=== PATIENT | female | born 1980 | race Caucasian/White ===

== ENCOUNTER 2017-09-03 22:55 | Inpatient (IN) ==
[2017-09-03] MEDS ORDERED: Acetaminophen 325 MG TABLET PO ONE ×2 (23:08→23:12)
[2017-09-03 23:31] LABS: Basophils % 0.1 %; Eosinophils % 0.1 %; Hematocrit 34.7 % (35.3-44.9); Hemoglobin 11.8 g/dL (11.5-15.4); Immature Granulocytes % 0.9 % (0-4); Lymphocytes # 1.5 K/mcL (0.6-4.6); Lymphocytes % 8.7 %; Mean Corpuscular Hemoglobin 31.1 pg (28.0-33.3); Mean Corpuscular Volume 91.3 fL (83.0-100.0); Mean Platelet Volume 10.2 fL (9.4-12.4); Monocytes # 1.3 K/mcL (0.0-1.3); Monocytes % 7.4 %; Neutrophils # 14.6 K/mcL (1.6-8.9); Platelet Count 239 K/mcL (140-400); Red Cell Distribution Width 13.9 % (11.5-14.5); Segmented Neutrophils % 82.8 %
[2017-09-03 23:36] LABS: INR 1.1; Prothrombin Time 12.3 Seconds (9.4-12.1)
[2017-09-03 23:38] LABS: Activated Partial Thrombo Time 29.3 Seconds (26.0-36.0)
--- NOTE | 2017-09-03 23:42 | Emergency Department Note ---
Disposition Clinical Impression: Pyelonephritis Disposition: Admitted As Inpatient Condition: Undetermined HPI - General Chief complaint: ED Abdominal Pain Stated complaint: Right Flank Pain Time Seen by Provider: 09/03/17 23:08 Source: patient, EMS Limitations: no limitations - History of Present Illness HPI Narrative: Concern about status. 37-year-old patient with a past medical history of IV drug use, presents from [facility] for pyelonephritis. Patient was sent here for treatment due to and unknown gestational age. She states her last monthly period was in May which puts her at roughly 15 weeks . 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 She denies shortness of breath, chest pain, vaginal discharge, vaginal cramping, abdominal cramping. Patient has received no care up until this point, she has an appointment with an OB next week for her first appointment. Patient is a 8 para 5 with 2 abortions. Pt Subjective Complaint: other (Pyelonephritis) Consistency: constant, Worsening Location: flank Radiation: abdomen Pain Severity: moderate, severe Quality: sharp Improves with: none - Related Data Home Medications Medication Instructions Recorded Confirmed Quetiapine Fumarate [Seroquel] 400 mg PO HS 11/27/16 09/04/17 Propranolol [Inderal] 20 mg PO TID 09/04/17 09/04/17 Topiramate [Topiramate] 25 mg PO DAILY 09/04/17 09/04/17 hydrOXYzine HCl [Hydroxyzine HCl] 50 mg PO TID 09/04/17 09/04/17 Allergies Allergy/AdvReac Type Severity Reaction Status Date / Time No Known Allergies Allergy Verified 11/27/16 05:32 All systems ED: reviewed and negative except as stated. Review of Systems: As Per HPI Constitutional: Reports: fever, chills Cardiovascular: Denies: chest pain, edema, syncope Respiratory: Denies: cough, dyspnea, sputum production Gastrointestinal: Denies: abdominal pain, nausea, vomiting, diarrhea Genitourinary: Reports: urgency, dysuria, frequency Musculoskeletal: Reports: back pain Neurological: Denies: headache, weakness, numbness, paresthesias PMH - Past Medical History LMP comments: - Social History Smoking Status: Current every day smoker Alcohol use: Reports: occasionally Drug use: Reports: opiates, methamphetamine, IV Drug Use, prescription drug abuse Physical Exam - General Limitations: no limitations General appearance: alert, in no apparent distress - Head Head exam: atraumatic, normocephalic, normal inspection - Eye Eye exam: Present: normal appearance, PERRL, EOMI - Neck Neck exam: Present: normal inspection, full ROM, trachea midline - Chest Chest inspection: Present: normal inspection, symmetric chest wall rise - Respiratory Respiratory exam: Present: normal lung sounds bilaterally - Cardiovascular Cardiovascular exam: Present: normal rhythm, tachycardia, normal heart sounds - Abdominal Exam Abdominal exam: Present: soft, Non-Tender, normal bowel sounds. Absent: tenderness, distention, guarding, rebound, rigidity - Extremities Exam Extremities exam: Present: normal inspection, full ROM. Absent: tenderness, pedal edema - Back Exam Back exam: Present: CVA tenderness (R) - Neurological Exam Neurological exam: Present: alert, oriented X3, CN II-XII intact - Psychiatric Psychiatric exam: Present: normal affect, normal mood - Skin Skin exam: Present: warm, dry, intact, normal color Course Course Narrative: 37-year-old patient with a past medical history of IV drug use, presents from [facility] for pyelonephritis. Patient was sent here for treatment due to and unknown gestational age. She states her last monthly period was in May which puts her at roughly 15 weeks . 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 She denies shortness of breath, chest pain, vaginal discharge, vaginal cramping, abdominal cramping. Patient has received no care up until this point, she has an appointment with an OB next week for her first appointment. Patient is a 8 para 5 with 2 abortions. 37-year-old toxic appearing female that looks older than stated age. She does have exquisite right CVA tenderness, with radiation. She does appear in moderate distress. Labs [facility] include White blood cell 17.6 , urinalysis shows leukocyte Estrace, sodium 1:30. We will labs, with the on- call SHOE RECONDITIONER for recommendations, complaints admitted to hospitalist services - Reevaluation(s) Reevaluation #1: Spoke with LINDSEY Garcia regarding care of patient. Because states he gave her Rocephin 1 g daily, IV fluids, may use Phenergan for nausea and vomiting, she needs a new UA, she had a transvaginal ultrasound in the morning to establish gestational age, and she will need a retroperitoneal ultrasound with a kidney infection due to unable to get a CT scan for . She will S admit to hospitalist services on the medicine floor due to being less than 20 weeks . They will consult alongside. Time: 00:31 (Source of) Reevaluation #2: Spoke with Dr. Blas with Hospital services. He does accept patient to the medical floor. Time: 01:20 Vital Signs Temperature 99.9 F H 09/03/17 22:57 Pulse Rate 113 09/03/17 22:57 Respiratory Rate 18 09/03/17 22:57 Blood Pressure 105/62 09/03/17 22:57 O2 Sat by Pulse Oximetry 98 09/03/17 22:57 Temperature 99.1 F 09/04/17 06:52 Pulse Rate 112 09/04/17 06:52 Respiratory Rate 14 09/04/17 06:52 Blood Pressure 107/68 09/04/17 06:52 O2 Sat by Pulse Oximetry 95 09/04/17 06:52 Oxygen Delivery Oxygen Delivery Room Air OB/Uterine Contractions - Lab Data Result diagrams: 09/03/17 23:21 09/03/17 23:21 Lab Results 09/03/17 09/03/17 09/03/17 Range/Units 23:21 23:21 23:21 WBC 17.6 H (4.3-11.1) K/mcL RBC 3.80 L (3.82-4.97) M/mcL Hgb 11.8 (11.5-15.4) g/dL Hct 34.7 L (35.3-44.9) % MCV 91.3 (83.0-100.0) fL MCH 31.1 (28.0-33.3) pg MCHC 34.0 (31.6-35.5) g/dL RDW 13.9 (11.5-14.5) % Plt Count 239 (140-400) K/mcL MPV 10.2 (9.4-12.4) fL Immature Gran % 0.9 (0-4) % Seg Neutrophils % 82.8 % Lymphocytes % 8.7 % Monocytes % 7.4 % Eosinophils % 0.1 % Basophils % 0.1 % Neutrophils # 14.6 H (1.6-8.9) K/mcL Lymphocytes # 1.5 (0.6-4.6) K/mcL Monocytes # 1.3 (0.0-1.3) K/mcL Eosinophils # 0.0 (0.0-0.6) K/mcL Basophils # 0.0 (0.0-0.2) K/mcL PT 12.3 H (9.4-12.1) Seconds INR 1.1 APTT 29.3 (26.0-36.0) Seconds Sodium 130 L (136-145) mEq/L Potassium 4.1 (3.5-5.1) mEq/L Chloride 103 (98-107) mEq/L Carbon Dioxide 21 L (23-29) mEq/L BUN 7 (6-20) mg/dL Creatinine 0.59 L (0.60-1.20) mg/dL Est GFR ( Amer) > 60 (> 60) Est GFR (Non-Af Amer) > 60 (> 60) BUN/Creatinine Ratio 12 (6-26) Glucose 118 H (70-105) mg/dL Calculated Osmolality 269 L (280-300) Lactic Acid (0.5-2.2) mmol/L Calcium 8.6 (8.6-10.3) mg/dL Total Bilirubin 0.5 (0.3-1.0) mg/dL Direct Bilirubin 0.2 (0.0-0.2) mg/dL Indirect Bilirubin 0.3 (0.0-1.2) mg/dL AST 33 (13-39) Units/L ALT 56 H (7-52) Units/L Alkaline Phosphatase 78 (34-104) Units/L Serum Total Protein 6.3 L (6.4-8.9) g/dL Albumin 2.9 L (3.5-5.7) g/dL Globulin 3.4 (2.4-3.5) g/dL Albumin/Globulin Ratio 0.9 L (1.1-2.2) Lipase 12 (11-82) Units/L Beta HCG, Quant 38495 H (Less than 5) mIU/mL 09/03/17 Range/Units 23:21 WBC (4.3-11.1) K/mcL RBC (3.82-4.97) M/mcL Hgb (11.5-15.4) g/dL Hct (35.3-44.9) % MCV (83.0-100.0) fL MCH (28.0-33.3) pg MCHC (31.6-35.5) g/dL RDW (11.5-14.5) % Plt Count (140-400) K/mcL MPV (9.4-12.4) fL Immature Gran % (0-4) % Seg Neutrophils % % Lymphocytes % % Monocytes % % Eosinophils % % Basophils % % Neutrophils # (1.6-8.9) K/mcL Lymphocytes # (0.6-4.6) K/mcL Monocytes # (0.0-1.3) K/mcL Eosinophils # (0.0-0.6) K/mcL Basophils # (0.0-0.2) K/mcL PT (9.4-12.1) Seconds INR APTT (26.0-36.0) Seconds Sodium (136-145) mEq/L Potassium (3.5-5.1) mEq/L Chloride (98-107) mEq/L Carbon Dioxide (23-29) mEq/L BUN (6-20) mg/dL Creatinine (0.60-1.20) mg/dL Est GFR ( Amer) (> 60) Est GFR (Non-Af Amer) (> 60) BUN/Creatinine Ratio (6-26) Glucose (70-105) mg/dL Calculated Osmolality (280-300) Lactic Acid 1.6 (0.5-2.2) mmol/L Calcium (8.6-10.3) mg/dL Total Bilirubin (0.3-1.0) mg/dL Direct Bilirubin (0.0-0.2) mg/dL Indirect Bilirubin (0.0-1.2) mg/dL AST (13-39) Units/L ALT (7-52) Units/L Alkaline Phosphatase (34-104) Units/L Serum Total Protein (6.4-8.9) g/dL Albumin (3.5-5.7) g/dL Globulin (2.4-3.5) g/dL Albumin/Globulin Ratio (1.1-2.2) Lipase (11-82) Units/L Beta HCG, Quant (Less than 5) mIU/mL
[2017-09-03 23:53] LABS: Alanine Aminotransferase 56 Units/L (7-52); Albumin 2.9 g/dL (3.5-5.7); Albumin/Globulin Ratio 0.9 (1.1-2.2); Alkaline Phosphatase 78 Units/L (34-104); Aspartate Amino Transferase 33 Units/L (13-39); BUN/Creatinine Ratio 12 (6-26); Bilirubin,Direct 0.2 mg/dL (0.0-0.2); Bilirubin,Indirect 0.3 mg/dL (0.0-1.2); Bilirubin,Total 0.5 mg/dL (0.3-1.0); Blood Urea Nitrogen 7 mg/dL (6-20); Calcium 8.6 mg/dL (8.6-10.3); Carbon Dioxide 21 mEq/L (23-29); Chloride 103 mEq/L (98-107); Globulin 3.4 g/dL (2.4-3.5); Glucose 118 mg/dL (70-105); Lipase 12 Units/L (11-82); Osmolality,Calculated 269 (280-300); Potassium 4.1 mEq/L (3.5-5.1); Sodium 130 mEq/L (136-145); Total Protein 6.3 g/dL (6.4-8.9); eGFR For African Americans > 60 (> 60); eGFR For Non-African Americans > 60 (> 60)
[2017-09-04] MEDS ORDERED: cefTRIAXone 2,000 MG in Water for inj. (sterile) 20 ML 20 ML IVPB SCH (01:00)
--- NOTE | 2017-09-04 01:22 | Emergency Department Note ---
START Narrative - START START: I examined this patient and my medical decision-making was reviewed with the nurse practioner. I agree with the documented findings, disposition and treatment plan as described except to the extent set forth below. 37 year old female presents to the ED from [place] for pyelonephritis and with confirmed IUP. She has spoken with OBBGYN and we will start rocephin therapy and admit to medicine.
[2017-09-04] MEDS ORDERED: Naloxone 0.4 MG/ML INJ IVP PRN (05:51)
[2017-09-04] MEDS ORDERED: 0.9 % Sodium Chloride 1,000 ML IVC SCH (06:00)
[2017-09-04] MEDS ORDERED: cefTRIAXone 2,000 MG in Water for inj. (sterile) 20 ML 20 ML IVP SCH (06:00)
--- NOTE | 2017-09-04 06:22 | Internal Med History&Physical ---
Date of Encounter: 09/04/17 Time of Encounter: 05:00 Assessment and Plan (1) DVT prophylaxis Current visit: Yes Status: Acute Lovenox SC (2) Pyelonephritis Current visit: No Status: Acute Pt has fever, Leukocytosis, nausea, right flank pain, UA shows UTI. Consider pyelonephritis. - Pt has received rocephin 1 g in [place] [facility], will cont with rocephin 1 g iv daily. - US retroperitoneal to r/o obstruction/hydronephrosis - F/U urine culture (3) Second trimester Current visit: No Status: Acute Per [place] [facility] record, heart tone is OK at 150. Will consult GRAPHIC COORDINATOR for help with management. Internal Medicine - H&P: HPI Chief complaint: Right flank pain Admitted From: Home Plans for Post Hospital Care: Home History of present illness: Ms. Woodall is a 37 year old female with 15 wk present to [place] [facility] for right flank pain for two days. Pt c/o fever with Temperature 100.1. She has nausea but no vomiting. Pt denies hx of renal stone. Pt denies runny nose or cough. Pt denies dysuria, burning, or increased frequency but c/o urinating urgency. In ER, UA shows UTI. Pt was admitted for pyelonephritis. Past Med Surg Social Fam HX - Past Medical History Medical history: hepatitis, other Psychiatric history: no psych history - Past Surgical History Surgical History: no surgical history - Social History Smoking Status: Current every day smoker Packs per day: 1/2 Smokeless Tobacco Status: No Alcohol use: none, occasionally Drug use: opiates, methamphetamine, IV Drug Use, prescription drug abuse - Family History Mother Living Status: Still Living Father Living Status: Still Living Hx Family Endocrine Disorder: Yes (DM) Internal Medicine - H&P: Meds Gabapentin [Neurontin] 600 mg PO QID 11/27/16 [History] Quetiapine Fumarate [Seroquel] 400 mg PO HS 11/27/16 [History] Tizanidine HCl [Zanaflex] 4 mg PO TID 11/27/16 [History] 3 Allergy/AdvReac Type Severity Reaction Status Date / Time No Known Allergies Allergy Verified 11/27/16 05:32 All Systems PM: A 10-system review of systems was performed and is negative for pertinent findings except as documented above in the HPI. - Constitutional Vitals: Temp Pulse Resp BP Pulse Ox 98.6 F 92 15 99/61 99 09/04/17 02:53 09/04/17 02:53 09/04/17 02:53 09/04/17 02:53 09/04/17 02:53 General appearance: Present: A&O X 3, no acute distress, answers questions appropriately - Head Head exam: Present: atraumatic, normocephalic - Eye Eye exam: Present: PERRL, conjuntiva pink, sclera anicteric Pupils: Present: PERRL - Neck Neck exam general surgery: Present: supple, trachea midline. Absent: lymphadenopathy - Respiratory Respiratory exam: Present: CTAB. Absent: accessory muscle use, rales, rhonchi, wheezes - Cardiovascular Cardiovascular exam: Present: RRR, +S1, +S2. Absent: diastolic murmur, gallop, rubs, systolic murmur - GI/Abdominal GI/Abdominal exam: Present: normal bowel sounds, soft, no peritoneal signs. Absent: distended, tenderness Additional comments: CVAT positive on right side - Extremities Exam Extremities exam: Present: warm, radial pulses palpable and symmetrical. Absent : calf tenderness, cyanotic, pedal edema - Neurological Exam Neurological exam: Present: CN II-XII intact, oriented X3, no focal deficits. Absent: pronater drift, facial droop, speech deficit - Skin Skin exam: Present: dry, intact Internal Med - H&P Results - Labs CBC & Chem 7: 09/03/17 23:21 09/03/17 23:21
[2017-09-04] MEDS: Acetaminophen 325 MG TABLET PO PRN ×2 (06:49→19:53)
[2017-09-04] MEDS: *HR* Enoxaparin 40 MG/0.4 ML SYRINGE SQ SCH (06:50)
--- NOTE | 2017-09-04 08:44 | OB/GYN Consult Note ---
Date of Encounter: 09/04/17 Time of Encounter: 08:30 Assessment and Plan (1) Second trimester Current Visit: No Status: Acute Patient doing well. No signs of active labor. Confirm gestational age with U/S Follow-up outpatient for care. No further acute intervention from OBGYN required at this time. Thank you for the consult. (2) Advanced maternal age (AMA) in Current Visit: Yes Status: Acute high risk (3) 19 weeks gestation of Current Visit: Yes Status: Acute ultrasound dates at 19w2d FHR 138 bpm Patient reports +FM Patient has not started care (4) Opiate dependence Current Visit: Yes Status: Acute Patient would like to join [facility] after speaking with pediatric social worker Patient is scheduled to see LINDSEY Latham in [place] tomorrow Patient educated that subutex group is for [facility] patient's only, patient is interested in seeing Dr. Tinajero if he will take her as a patient. + Qualifiers: Substance use status: uncomplicated Qualified Code(s): F11.20 - Opioid dependence, uncomplicated History of Present Illness Consult date: 09/04/17 Reason for consult: other Chief complaint: back pain History of present illness: 37F 5 0 2 5 with PMHx IV Drug use presented to [facility] for pyelonephritis and was sent to [facility] for treatment due to and unknown gestation age. LMP 05/30/17, which puts her at 15 weeks. Patient states previous pregnancies were all without complications. Denies previous C/S. She reports last percocet and gabapentin use 3 weeks ago. Admits to active movements, denies vaginal bleeding, contractions, leakage of fluids. No care during this with scheduled OBGYN appointment tomorrow. Past Med Surg Social Fam HX - Past Medical History Source: patient Medical history: hepatitis, other Psychiatric history: no psych history - Past Surgical History Surgical History: no surgical history - Social History Smoking Status: Current every day smoker Packs per day: 1/2 Smokeless Tobacco Status: No Alcohol use: occasionally Drug use: opiates, methamphetamine, IV Drug Use, prescription drug abuse - Family History Mother Living Status: Still Living Father Living Status: Still Living Hx Family Endocrine Disorder: Yes (DM) Medications and Allergies Quetiapine Fumarate [Seroquel] 400 mg PO HS 11/27/16 [History] Propranolol [Inderal] 20 mg PO TID 09/04/17 [History] Topiramate [Topiramate] 25 mg PO DAILY 09/04/17 [History] hydrOXYzine HCl [Hydroxyzine HCl] 50 mg PO TID 09/04/17 [History] 3 Allergy/AdvReac Type Severity Reaction Status Date / Time No Known Allergies Allergy Verified 11/27/16 05:32 Review of Systems Constitutional: as per HPI Exam - Vital Signs Vital signs: Initial Vital Signs Temp Pulse Resp BP Pulse Ox 99.9 F H 113 18 105/62 98 09/03/17 22:57 09/03/17 22:57 09/03/17 22:57 09/03/17 22:57 09/03/17 22:57 - Constitutional Constitutional: well developed, well nourished, no acute distress, average body habitus - HEENT HEENT: Normocephaly, Mucus Membranes Moist - Neck Neck exam: normal inspection, supple, trachea midline - Lungs Respiratory exam: CTAB - Cardiovascular Cardiovascular exam: RRR, +S1, +S2 - Abdomen Abdomen: Present: bowel sounds normal, gravid, non tender - Extremities Extremities exam: full ROM Deep Tendon Reflex Grade: 2+ Normal - Uterus Uterus exam: Present: normal size (Fundus firm and nontender) Results Result Diagrams: 09/04/17 08:43 09/04/17 08:43 Abnormal lab results WBC 17.6 K/mcL (4.3-11.1) H 09/03/17 23:21 RBC 3.80 M/mcL (3.82-4.97) L 09/03/17 23:21 Hct 34.7 % (35.3-44.9) L 09/03/17 23:21 Neutrophils # 14.6 K/mcL (1.6-8.9) H 09/03/17 23:21 PT 12.3 Seconds (9.4-12.1) H 09/03/17 23:21 Sodium 130 mEq/L (136-145) L 09/03/17 23:21 Carbon Dioxide 21 mEq/L (23-29) L 09/03/17 23:21 Creatinine 0.59 mg/dL (0.60-1.20) L 09/03/17 23:21 Glucose 118 mg/dL (70-105) H 09/03/17 23:21 Calculated Osmolality 269 (280-300) L 09/03/17 23:21 ALT 56 Units/L (7-52) H 09/03/17 23:21 Serum Total Protein 6.3 g/dL (6.4-8.9) L 09/03/17 23:21 Albumin 2.9 g/dL (3.5-5.7) L 09/03/17 23:21 Albumin/Globulin Ratio 0.9 (1.1-2.2) L 09/03/17 23:21 Beta HCG, Quant 78839 mIU/mL (Less than 5) H 09/03/17 23:21 All other labs normal. Consult Discharge Plan - Plan Referrals: Keo Schaefer MD [Primary Care Provider] - - Attending Attestation I examined this patient and my medical decision-making was reviewed with the Resident Physician. I agree with the documented findings, disposition and treatment plan as described except to the extent set forth below. LINDSEY Valles
[2017-09-04 08:51] LABS: Hematocrit 34.5 % (35.3-44.9); Hemoglobin 11.5 g/dL (11.5-15.4); Immature Granulocytes % 1.2 % (0-4); Lymphocytes % 4.3 %; Mean Corpuscular HGB Conc 33.3 g/dL (31.6-35.5); Mean Corpuscular Hemoglobin 30.6 pg (28.0-33.3); Mean Corpuscular Volume 91.8 fL (83.0-100.0); Mean Platelet Volume 10.3 fL (9.4-12.4); Monocytes % 8.3 %; Platelet Count 217 K/mcL (140-400); Red Blood Count 3.76 M/mcL (3.82-4.97); Red Cell Distribution Width 14.1 % (11.5-14.5)
[2017-09-04 08:52] LABS: Basophils % 0.2 %; Lymphocytes # 0.9 K/mcL (0.6-4.6); Monocytes # 1.7 K/mcL (0.0-1.3); Neutrophils # 17.8 K/mcL (1.6-8.9)
[2017-09-04 09:13] LABS: BUN/Creatinine Ratio 10 (6-26); Blood Urea Nitrogen 5 mg/dL (6-20); Calcium 8.6 mg/dL (8.6-10.3); Carbon Dioxide 17 mEq/L (23-29); Chloride 109 mEq/L (98-107); Glucose 137 mg/dL (70-105); Osmolality,Calculated 275 (280-300); Potassium 3.3 mEq/L (3.5-5.1); Sodium 133 mEq/L (136-145); eGFR For African Americans > 60 (> 60); eGFR For Non-African Americans > 60 (> 60)
[2017-09-04] MEDS ORDERED: Ipratropium/Albuterol Neb 3 ML IH PRN (13:48)
[2017-09-04 14:01] LABS: Bilirubin,Urine Negative (Negative); Blood,Urine Moderate (Negative); Clarity,Urine Turbid (Clear); Color,Urine Yellow (Yellow); Glucose,Urine (UA) Normal (Normal); Ketones,Urine Negative (Negative); Leukocyte Esterase,Urine Large (Negative); Nitrite,Urine Negative (Negative); Protein,Urine Trace mg/dL (Neg-Trace); Specific Gravity,Urine 1.007 (1.010-1.025); Urobilinogen,Urine Normal (Normal)
[2017-09-04 14:04] LABS: Hyaline Casts,Urine None Seen per lpf (None-Few); RBC,Urine 0-3 per hpf (0-3); Squamous Epithelial Cell,Urine Many per lpf (None-Few); WBC,Urine TNTC per hpf (0-3)
[2017-09-04 14:17] LABS: Bacteria,Urine Few per hpf (None-Few); Transitional Epi Cells,Urine Few per hpf (None-Few)
[2017-09-04] MEDS ORDERED: Potassium Chloride Elixir 20 MEQ/15 ML UDC PO ONE (15:38)
--- NOTE | 2017-09-04 15:41 | Event Note ---
Date of Encounter: 09/04/17 Time of Encounter: 08:40 37-year-old female with history of anxiety, personality disorder, 15 week , is admitted with fever, chills, right-sided flank pain. Seen and examined at bedside. Reports some improvement, but still feels sick with generalized weakness and flank pain. Chest-S1, S2 heard. Lungs are clear to auscultation. Labs reviewed-worsening leukocytosis with WBC 20, serum sodium 133, serum potassium 3.3, serum bicarbonate 17 Sepsis with likely UTI/pyelonephritis- patient had low-grade fever, leukocytosis and tachycardia, urinary symptoms and flank pain. Urine microscopy and culture have not been sent in emergency room, ordered now. Urinalysis shows pyuria, culture pending. Continue IV Rocephin and IV hydration. Follow up urine culture. Follow-up retroperitoneal ultrasound. Non-anion gap metabolic acidosis-likely hyperchloremic. Check serum lactate level. Change IV fluids to lactated Ringer's. Continue to monitor closely. 15 weeks -INTERSTATE BUS DRIVER consult appreciated. Follow-up pelvic ultrasound.
[2017-09-04] MEDS: hydrOXYzine pamoate 25 MG CAPSULE PO SCH ×2 (15:57→21:05)
[2017-09-04] MEDS: Ringers Solution, Lactated 1,000 ML IVC SCH (15:58)
[2017-09-04] MEDS: cefTRIAXone 1,000 MG in Water for inj. (sterile) 20 ML 20 ML IVP SCH (18:34)
[2017-09-04 19:49] LABS: Amphetamine Screen,Urine Negative ng/mL (Cutoff=1000); Barbiturate Screen,Urine Negative ng/mL (Cutoff=200); Benzodiazepines Screen,Urine Negative ng/mL (Cutoff=200); Cannabinoid Screen,Urine Negative ng/mL (Cutoff = 50); Cocaine Screen,Urine Negative ng/mL (Cutoff= 300); Opiate Screen,Urine Negative ng/mL (Cutoff=300); Phencyclidine Screen,Urine Negative ng/mL (Cutoff=25)
[2017-09-05 04:45] LABS: Basophils % 0.3 %; Eosinophils # 0.2 K/mcL (0.0-0.6); Eosinophils % 1.5 %; Hematocrit 29.2 % (35.3-44.9); Immature Granulocytes % 1.3 % (0-4); Lymphocytes # 1.5 K/mcL (0.6-4.6); Lymphocytes % 10.3 %; Mean Corpuscular HGB Conc 33.9 g/dL (31.6-35.5); Mean Corpuscular Volume 91.5 fL (83.0-100.0); Mean Platelet Volume 10.6 fL (9.4-12.4); Monocytes # 1.1 K/mcL (0.0-1.3); Monocytes % 7.8 %; Neutrophils # 11.2 K/mcL (1.6-8.9); Platelet Count 209 K/mcL (140-400); Red Blood Count 3.19 M/mcL (3.82-4.97); Red Cell Distribution Width 14.2 % (11.5-14.5); Segmented Neutrophils % 78.8 %
[2017-09-05 04:49] LABS: Hemoglobin 9.9 g/dL (11.5-15.4)
[2017-09-05 05:05] LABS: BUN/Creatinine Ratio 19 (6-26); Blood Urea Nitrogen 10 mg/dL (6-20); Calcium 8.5 mg/dL (8.6-10.3); Carbon Dioxide 20 mEq/L (23-29); Chloride 113 mEq/L (98-107); Glucose 118 mg/dL (70-105); Osmolality,Calculated 284 (280-300); Potassium 3.7 mEq/L (3.5-5.1); Sodium 137 mEq/L (136-145); eGFR For African Americans > 60 (> 60); eGFR For Non-African Americans > 60 (> 60)
[2017-09-05] MEDS: *HR* Enoxaparin 40 MG/0.4 ML SYRINGE SQ SCH (05:45)
[2017-09-05] MEDS: Ringers Solution, Lactated 1,000 ML IVC SCH ×2 (05:45→21:14)
[2017-09-05] MEDS: hydrOXYzine pamoate 25 MG CAPSULE PO SCH ×3 (08:51→21:14)
[2017-09-05] MEDS: Prenatal Vit/FA 1 EACH TABLET PO SCH (08:51)
[2017-09-05] MEDS: Topiramate 25 MG TABLET PO SCH (08:51)
[2017-09-05] MEDS: Famotidine 20 MG TABLET PO SCH ×2 (08:55→21:13)
[2017-09-05] MEDS: Acetaminophen 325 MG TABLET PO PRN ×2 (08:55→21:13)
--- NOTE | 2017-09-05 14:53 | Internal Med Progress Note ---
Date of Encounter: 09/05/17 Time of Encounter: 09:15 - Assessment and plan (1) Pyelonephritis Current Visit: Yes Status: Suspected Assessment and plan: Based on signs and symptoms. CT abdomen could not be done due to . Urinalysis and urine culture with not sent prior to antibiotics, which may be why urine culture shows no growth. One out of one blood culture sent from emergency room grows Escherichia coli, final sensitivity pending. Continue IV Rocephin for now, follow up final results. Repeat blood cultures today. (2) Sepsis Current Visit: Yes Status: Acute Assessment and plan: Presented with fever, tachycardia, leukocytosis, right flank pain; likely UTI/ pyelonephritis. Patient also had mild lactic acidosis, currently improved. Continue IV hydration, IV antibiotics, follow cultures. Monitor vital signs closely. Qualifiers: Sepsis type: Escherichia coli Qualified Code(s): A41.51 - Sepsis due to Escherichia coli [E. coli] (3) Asthma Current Visit: Yes Status: Acute Assessment and plan: Likely has undiagnosed COPD/reactive airway process. Chest x-ray reviewed- right lower lobe opacity, atelectasis versus infiltrates. Continue IV antibiotics. Start IV steroids. Continue bronchodilators, supplemental oxygen and supportive care. Case discussed with pulmonology, with follow-up full recommendations. Patient needs outpatient lung function testing; smoking cessation advised; Qualifiers: Asthma severity: mild Asthma complication type: uncomplicated Qualified Code(s): J45.20 - Mild intermittent asthma, uncomplicated (4) COPD (chronic obstructive pulmonary disease) Current Visit: Yes Status: Acute Assessment and plan: plan as above; Qualifiers: COPD type: unspecified COPD Qualified Code(s): J44.9 - Chronic obstructive pulmonary disease, unspecified (5) Tobacco abuse Current Visit: Yes Status: Chronic Assessment and plan: does not request Nicotine transdermal patch; (6) 19 weeks gestation of Current Visit: Yes Status: Acute Assessment and plan: OBGYN consult noted; pelvic ultrasound showed normal live intrauterine . Patient will be scheduled to begin outpatient obstetrics care appointments. OB school social worker is following. Patient also requires a maternal group therapy due to prescription opioid drug dependence. (7) Opiate dependence Current Visit: Yes Status: Acute Assessment and plan: as above; Qualifiers: Substance use status: uncomplicated Qualified Code(s): F11.20 - Opioid dependence, uncomplicated (8) Gram-negative bacteremia Current Visit: Yes Status: Acute - Subjective Interval history: Reports feeling better; continues to have some shortness of breath; no cough, fever/chills, nausea/vomiting; - Constitutional Vitals: Temp Pulse Resp BP Pulse Ox 97.5 F L 88 16 90/55 97 09/05/17 14:00 09/05/17 14:00 09/05/17 14:00 09/05/17 14:00 09/05/17 14:00 General appearance: Present: A&O X 3, no acute distress, answers questions appropriately - Respiratory Respiratory exam: Present: CTAB (coarse breath sounds B/L, no wheezing). Absent : accessory muscle use, rales, rhonchi, wheezes - Cardiovascular Cardiovascular exam: Present: RRR, +S1, +S2. Absent: diastolic murmur, gallop, rubs, systolic murmur - GI/Abdominal GI/Abdominal exam: Present: normal bowel sounds, soft, no peritoneal signs. Absent: distended, tenderness - Back Exam Back exam: Present: CVA tenderness (R) (mild) - Neurological Exam Neurological exam: Present: CN II-XII intact, oriented X3, no focal deficits. Absent: pronater drift, facial droop, speech deficit Internal Medicine: Result - Labs CBC & Chem 7: 09/05/17 04:26 09/05/17 04:26 Labs: Short CBC 09/05/17 Range/Units 04:26 WBC 14.2 H (4.3-11.1) K/mcL Hgb 9.9 L D (11.5-15.4) g/dL Hct 29.2 L (35.3-44.9) % Plt Count 209 (140-400) K/mcL Neutrophils # 11.2 H (1.6-8.9) K/mcL BMP 09/05/17 04:26 Sodium 137 Potassium 3.7 Chloride 113 H Carbon Dioxide 20 L BUN 10 Creatinine 0.54 L Glucose 118 H Calcium 8.5 L - ABG Interpretation ABG results: PT/INR, D-dimer PT 12.3 Seconds (9.4-12.1) H 09/03/17 23:21 - Impressions Impressions Ultrasound 09/04/17 17:00 IMPRESSION: Single live intrauterine with gestational age of 19 weeks 2 days by current sonographic biometry. The estimated due date is 01/27/2018. D/ / Gamaliel Kapoor MD / Gamaliel Kapoor MD Interpreting Provider: Gamaliel Kapoor MD Retroperitoneum Ultrasound 09/04/17 17:30 IMPRESSION: Unremarkable ultrasound of the kidneys. D/ / Jeff Porter MD / Jeff Porter MD Interpreting Provider: Jeff Porter MD Chest X-Ray 09/05/17 10:00 IMPRESSION: Small amount of opacity in the lower right lung either due to atelectasis or pneumonia. Lung volumes are somewhat low. No other significant abnormality. D/ / Alfredo Brown MD / Alfredo Brown MD Interpreting Provider: Alfredo Brown MD Consult Discharge Plan - Plan Referrals: Keo Schaefer MD [Primary Care Provider] -
[2017-09-05] MEDS: MethylPREDNISolone 40 MG/ML VIAL IVP SCH ×2 (15:57→21:13)
[2017-09-05] MEDS: cefTRIAXone 1,000 MG in Water for inj. (sterile) 20 ML 20 ML IVP SCH (17:49)
--- NOTE | 2017-09-05 21:05 | Pulmonology Consult Note ---
Date of Encounter: 09/05/17 Time of Encounter: 15:00 Assessment and Plan (1) Asthma with exacerbation Current Visit: Yes Status: Acute Patient symptoms more pertaining towards asthma but might have COPD component with chronic smoking history with we should control any exacerbation for good outcomes agree with prn bronchodilators with short burst steroids for five days we can change to PO prednisone tomorrow . Patient should establish with pulmonary as outpatient Qualifiers: Asthma severity: mild Asthma persistence: intermittent Qualified Code(s) : J45.21 - Mild intermittent asthma with (acute) exacerbation (2) Sepsis Current Visit: Yes Status: Acute Most likely UTI on ceftriaxone getting better . Qualifiers: Sepsis type: Escherichia coli Qualified Code(s): A41.51 - Sepsis due to Escherichia coli [E. coli] History of Present Illness Consult date: 09/05/17 Requesting physician: Alessandra Phelps Reason for consult: dyspnea Chief complaint: Flank pain History of present illness: 37 year old female with past medical history significant for chronic smoking , now 20 weeks she used to smoke for past 21 years , has on and of shortness of breadth with wheezing with some asthmatic symptoms , has some on and off cough sputum was admitted for pyelonephritis now getting treated pulmonary was consulted because of suspected COPD /Asthma exacerbation . Patient denies any chest pain or tightness , denies any palpitations , denies any abdominal pain , denies any other constitutional symptoms Past Med Surg Social Fam HX - Past Medical History Medical history: hepatitis, other Psychiatric history: no psych history - Past Surgical History Surgical History: no surgical history - Social History Smoking Status: Current every day smoker Packs per day: 1/2 Smokeless Tobacco Status: No Alcohol use: occasionally Drug use: opiates, methamphetamine, IV Drug Use, prescription drug abuse - Family History Mother Living Status: Still Living Father Living Status: Still Living Hx Family Endocrine Disorder: Yes (DM) Medications and Allergies Quetiapine Fumarate [Seroquel] 400 mg PO HS 11/27/16 [History] Propranolol [Inderal] 20 mg PO TID 09/04/17 [History] Topiramate [Topiramate] 25 mg PO DAILY 09/04/17 [History] hydrOXYzine HCl [Hydroxyzine HCl] 50 mg PO TID 09/04/17 [History] 3 Allergy/AdvReac Type Severity Reaction Status Date / Time No Known Allergies Allergy Verified 11/27/16 05:32 All Systems: All other review of systems were negative except mentioned in HPI Physical Examination Vital Signs: Vital Signs, Last 4 Hours Temp Pulse Resp BP Pulse Ox 09/05/17 19:12 98.0 F 90 14 93/55 98 Auscultation: bilateral: clear Results - Laboratory Findings CBC and BMP: 09/05/17 04:26 09/05/17 04:26 PT/INR, D-dimer PT 12.3 Seconds (9.4-12.1) H 09/03/17 23:21 Abnormal lab findings: Abnormal lab results WBC 14.2 K/mcL (4.3-11.1) H 09/05/17 04:26 RBC 3.19 M/mcL (3.82-4.97) L 09/05/17 04:26 Hgb 9.9 g/dL (11.5-15.4) L D 09/05/17 04:26 Hct 29.2 % (35.3-44.9) L 09/05/17 04:26 Neutrophils # 11.2 K/mcL (1.6-8.9) H 09/05/17 04:26 PT 12.3 Seconds (9.4-12.1) H 09/03/17 23:21 Chloride 113 mEq/L (98-107) H 09/05/17 04:26 Carbon Dioxide 20 mEq/L (23-29) L 09/05/17 04:26 Creatinine 0.54 mg/dL (0.60-1.20) L 09/05/17 04:26 Glucose 118 mg/dL (70-105) H 09/05/17 04:26 Calcium 8.5 mg/dL (8.6-10.3) L 09/05/17 04:26 ALT 56 Units/L (7-52) H 09/03/17 23:21 Serum Total Protein 6.3 g/dL (6.4-8.9) L 09/03/17 23:21 Albumin 2.9 g/dL (3.5-5.7) L 09/03/17 23:21 Albumin/Globulin Ratio 0.9 (1.1-2.2) L 09/03/17 23:21 Beta HCG, Quant 28422 mIU/mL (Less than 5) H 09/03/17 23:21 Urine Clarity Turbid (Clear) A 09/04/17 13:51 Ur Specific [place] 1.007 (1.010-1.025) L 09/04/17 13:51 Urine Blood Moderate (Negative) H 09/04/17 13:51 Ur Leukocyte Esterase Large (Negative) H 09/04/17 13:51 Urine Microscopic WBC TNTC per hpf (0-3) H 09/04/17 13:51 Ur Squamous Epith Cells Many per lpf (None-Few) H 09/04/17 13:51 - Microbiology Findings Microbiology Findings: Microbiology, Last 48 Hours 09/04/17 13:51 Urine Culture - Final Urine,Clean Catch No growth. - Clinical Findings Intake & Output: Intake & Output 09/05/17 09/05/17 09/05/17 07:59 15:59 23:59 Intake Total 1480 / 1480 1560 / 1560 260 / 260 Output Total 100 / 100 2400 / 2400 Balance 1380 / 1380 -840 / -840 260 / 260 Weight 80.422 kg Consult Discharge Plan - Plan Referrals: Keo Schaefer MD [Primary Care Provider] -
[2017-09-06] MEDS: MethylPREDNISolone 40 MG/ML VIAL IVP SCH (05:08)
[2017-09-06] MEDS: *HR* Enoxaparin 40 MG/0.4 ML SYRINGE SQ SCH (05:08)
[2017-09-06 06:06] LABS: Basophils % 0.2 %; Hematocrit 31.4 % (35.3-44.9); Hemoglobin 10.6 g/dL (11.5-15.4); Immature Granulocytes % 1.6 % (0-4); Lymphocytes # 1.1 K/mcL (0.6-4.6); Lymphocytes % 5.8 %; Mean Corpuscular HGB Conc 33.8 g/dL (31.6-35.5); Mean Corpuscular Hemoglobin 30.8 pg (28.0-33.3); Mean Corpuscular Volume 91.3 fL (83.0-100.0); Mean Platelet Volume 11.1 fL (9.4-12.4); Monocytes # 0.4 K/mcL (0.0-1.3); Monocytes % 2.4 %; Neutrophils # 16.5 K/mcL (1.6-8.9); Platelet Count 288 K/mcL (140-400); Red Blood Count 3.44 M/mcL (3.82-4.97); Red Cell Distribution Width 14.6 % (11.5-14.5)
[2017-09-06 06:28] LABS: BUN/Creatinine Ratio 19 (6-26); Blood Urea Nitrogen 8 mg/dL (6-20); Calcium 9.3 mg/dL (8.6-10.3); Carbon Dioxide 18 mEq/L (23-29); Chloride 115 mEq/L (98-107); Glucose 116 mg/dL (70-105); Osmolality,Calculated 285 (280-300); Potassium 4.4 mEq/L (3.5-5.1); Sodium 138 mEq/L (136-145); eGFR For African Americans > 60 (> 60); eGFR For Non-African Americans > 60 (> 60)
[2017-09-06] MEDS: Famotidine 20 MG TABLET PO SCH ×2 (07:49→21:41)
[2017-09-06] MEDS: Topiramate 25 MG TABLET PO SCH (07:50)
[2017-09-06] MEDS: hydrOXYzine pamoate 25 MG CAPSULE PO SCH ×3 (07:50→21:40)
[2017-09-06] MEDS: Prenatal Vit/FA 1 EACH TABLET PO SCH (07:50)
--- NOTE | 2017-09-06 11:39 | Pulmonology Progress Note ---
Date of Encounter: 09/06/17 Time of Encounter: 11:15 Assessment and Plan (1) Asthma with exacerbation Current Visit: Yes Status: Acute Patient might have COPD component she needs to be established with Pulmonology for outpatient PFT'S . Will discharge Albuterol prn and total 5 days of prednisone 40 mg PO . Counseled about smoking cessation Qualifiers: Asthma severity: mild Asthma persistence: intermittent Qualified Code(s) : J45.21 - Mild intermittent asthma with (acute) exacerbation (2) Sepsis Current Visit: Yes Status: Acute Is resolved management according to primary team . Qualifiers: Sepsis type: Escherichia coli Qualified Code(s): A41.51 - Sepsis due to Escherichia coli [E. coli] Subjective Principal diagnosis: Asthma with exacerbation Interval history: 37 year old female with past medical history significant for , sepsis due to probable pyelonephritis recovering developed asthma exacerbation . Patient says she is back to baseline Objective PUL Vital signs: Last Vital Signs Temp 97.9 F 09/06/17 10:45 Pulse 89 09/06/17 10:45 Resp 18 09/06/17 10:45 BP 104/66 09/06/17 10:45 Pulse Ox 100 09/06/17 10:45 Auscultation: bilateral: clear Results - Laboratory Findings CBC and BMP: 09/06/17 04:56 09/06/17 04:56 PT/INR, D-dimer PT 12.3 Seconds (9.4-12.1) H 09/03/17 23:21 Abnormal lab findings: Abnormal lab results WBC 18.4 K/mcL (4.3-11.1) H 09/06/17 04:56 RBC 3.44 M/mcL (3.82-4.97) L 09/06/17 04:56 Hgb 10.6 g/dL (11.5-15.4) L 09/06/17 04:56 Hct 31.4 % (35.3-44.9) L 09/06/17 04:56 RDW 14.6 % (11.5-14.5) H 09/06/17 04:56 Neutrophils # 16.5 K/mcL (1.6-8.9) H 09/06/17 04:56 PT 12.3 Seconds (9.4-12.1) H 09/03/17 23:21 Chloride 115 mEq/L (98-107) H 09/06/17 04:56 Carbon Dioxide 18 mEq/L (23-29) L 09/06/17 04:56 Creatinine 0.43 mg/dL (0.60-1.20) L 09/06/17 04:56 Glucose 116 mg/dL (70-105) H 09/06/17 04:56 ALT 56 Units/L (7-52) H 09/03/17 23:21 Serum Total Protein 6.3 g/dL (6.4-8.9) L 09/03/17 23:21 Albumin 2.9 g/dL (3.5-5.7) L 09/03/17 23:21 Albumin/Globulin Ratio 0.9 (1.1-2.2) L 09/03/17 23:21 Beta HCG, Quant 31016 mIU/mL (Less than 5) H 09/03/17 23:21 Urine Clarity Turbid (Clear) A 09/04/17 13:51 Ur Specific [place] 1.007 (1.010-1.025) L 09/04/17 13:51 Urine Blood Moderate (Negative) H 09/04/17 13:51 Ur Leukocyte Esterase Large (Negative) H 09/04/17 13:51 Urine Microscopic WBC TNTC per hpf (0-3) H 09/04/17 13:51 Ur Squamous Epith Cells Many per lpf (None-Few) H 09/04/17 13:51 - Microbiology Findings Microbiology Findings: Microbiology, Last 48 Hours 09/04/17 13:51 Urine Culture - Final Urine,Clean Catch No growth. - Clinical Findings Intake & Output: Intake & Output 09/05/17 09/06/17 09/06/17 23:59 07:59 15:59 Intake Total 1260 / 1260 3480 / 3480 770 / 770 Output Total 1200 / 1200 1999 / 1999 0 / 0 Balance 60 / 60 1480 / 1480 770 / 770 Weight 80.5 kg Consult Discharge Plan - Plan Referrals: Keo Schaefer MD [Primary Care Provider] -
[2017-09-06] MEDS: Acetaminophen 325 MG TABLET PO PRN (15:30)
--- NOTE | 2017-09-06 15:32 | Internal Med Progress Note ---
Date of Encounter: 09/06/17 Time of Encounter: 10:00 - Assessment and plan (1) Pyelonephritis Current Visit: Yes Status: Suspected Assessment and plan: Based on signs and symptoms. CT abdomen could not be done due to . Urinalysis and urine culture with not sent prior to antibiotics, which may be why urine culture shows no growth. One out of one blood culture sent from emergency room grows Escherichia coli, final sensitivity pending. Repeat blood cultures from September 05 pending. Continue IV Rocephin for now, follow up final results. Improved clinically. (2) Sepsis Current Visit: Yes Status: Resolved Assessment and plan: Presented with fever, tachycardia, leukocytosis, right flank pain; likely UTI/ pyelonephritis. Patient also had mild lactic acidosis, currently improved. Continue IV antibiotics, follow cultures. Monitor vital signs closely. Qualifiers: Sepsis type: Escherichia coli Qualified Code(s): A41.51 - Sepsis due to Escherichia coli [E. coli] (3) Asthma Current Visit: Yes Status: Acute Assessment and plan: Likely has undiagnosed COPD/reactive airway process. Chest x-ray reviewed- right lower lobe opacity, atelectasis versus infiltrates. Continue IV antibiotics. Improving. Change steroids to PO Prednisone. Continue bronchodilators, supplemental oxygen and supportive care. Patient needs outpatient lung function testing; smoking cessation advised; Qualifiers: Asthma severity: mild Asthma complication type: uncomplicated Qualified Code(s): J45.20 - Mild intermittent asthma, uncomplicated (4) COPD (chronic obstructive pulmonary disease) Current Visit: Yes Status: Acute Assessment and plan: plan as above; Qualifiers: COPD type: unspecified COPD Qualified Code(s): J44.9 - Chronic obstructive pulmonary disease, unspecified (5) Tobacco abuse Current Visit: Yes Status: Chronic Assessment and plan: does not request Nicotine transdermal patch; (6) 19 weeks gestation of Current Visit: Yes Status: Acute Assessment and plan: OBGYN consult noted; pelvic ultrasound showed normal live intrauterine . Patient will be scheduled to begin outpatient obstetrics care appointments. OB renal social worker is following. Patient also requires a maternal group therapy due to prescription opioid drug dependence. (7) Opiate dependence Current Visit: Yes Status: Acute Qualifiers: Substance use status: uncomplicated Qualified Code(s): F11.20 - Opioid dependence, uncomplicated (8) Gram-negative bacteremia Current Visit: Yes Status: Acute Assessment and plan: plan as above; - Subjective Interval history: Reports feeling better; improved shortness of breath and flank pain; no chest pain, cough, fever/chills; - Constitutional Vitals: Temp Pulse Resp BP Pulse Ox 97.8 F 93 18 93/48 98 09/06/17 15:28 09/06/17 15:28 09/06/17 15:28 09/06/17 15:28 09/06/17 15:28 General appearance: Present: A&O X 3, no acute distress, answers questions appropriately - Respiratory Respiratory exam: Present: CTAB (coarse breath sounds B/L). Absent: accessory muscle use, rales, rhonchi, wheezes - Cardiovascular Cardiovascular exam: Present: RRR, +S1, +S2. Absent: diastolic murmur, gallop, rubs, systolic murmur - GI/Abdominal GI/Abdominal exam: Present: normal bowel sounds, soft, no peritoneal signs. Absent: distended, tenderness - Extremities Exam Extremities exam: Present: full ROM, warm, radial pulses palpable and symmetrical. Absent: calf tenderness, cyanotic, pedal edema - Neurological Exam Neurological exam: Present: CN II-XII intact, oriented X3, no focal deficits. Absent: pronater drift, facial droop, speech deficit Internal Medicine: Result - Labs CBC & Chem 7: 09/06/17 04:56 09/06/17 04:56 - ABG Interpretation ABG results: PT/INR, D-dimer PT 12.3 Seconds (9.4-12.1) H 09/03/17 23:21 Consult Discharge Plan - Plan Referrals: Keo Schaefer MD [Primary Care Provider] -
[2017-09-06] MEDS: cefTRIAXone 1,000 MG in Water for inj. (sterile) 20 ML 20 ML IVP SCH (17:31)
[2017-09-07] MEDS: *HR* Enoxaparin 40 MG/0.4 ML SYRINGE SQ SCH (05:25)
[2017-09-07] MEDS: Ringers Solution, Lactated 1,000 ML IVC SCH (08:29)
[2017-09-07] MEDS ORDERED: predniSONE 20 MG TABLET PO SCH (09:00)
[2017-09-07] MEDS: Topiramate 25 MG TABLET PO SCH (09:34)
[2017-09-07] MEDS: Famotidine 20 MG TABLET PO SCH (09:34)
[2017-09-07] MEDS: Prenatal Vit/FA 1 EACH TABLET PO SCH (09:34)
[2017-09-07 10:52] VITALS: BP 114/65
--- NOTE | 2017-09-07 11:30 | Discharge Summary ---
Date of Encounter: 09/07/17 Time of Encounter: 11:28 - Discharge Diagnosis (1) Pyelonephritis Priority: Primary Status: Suspected (2) Sepsis Priority: Primary Status: Resolved Qualifiers: Sepsis type: Escherichia coli Qualified Code(s): A41.51 - Sepsis due to Escherichia coli [E. coli] (3) Asthma Priority: Primary Status: Acute Qualifiers: Asthma severity: mild Asthma persistence: intermittent Asthma complication type: uncomplicated Qualified Code(s): J45.20 - Mild intermittent asthma, uncomplicated (4) COPD (chronic obstructive pulmonary disease) Priority: Secondary Status: Chronic Qualifiers: COPD type: unspecified COPD Qualified Code(s): J44.9 - Chronic obstructive pulmonary disease, unspecified (5) Tobacco abuse Priority: Secondary Status: Chronic (6) 19 weeks gestation of Priority: Primary Status: Chronic (7) Opiate dependence Priority: Secondary Status: Chronic Qualifiers: Substance use status: uncomplicated Qualified Code(s): F11.20 - Opioid dependence, uncomplicated (8) Gram-negative bacteremia Priority: Primary Status: Acute Hospital course: Ms. Woodall is a 37 year old female with the above medical problems, who was admitted with fever, chills and right flank pain. Patient was noted to be , could not obtain CT abdomen at the time of admission. She was started on IV hydration, IV antibiotics-Rocephin for sepsis, possibly secondary to UTI/pyelonephritis. One out of 2 initial blood cultures grew pansensitive Escherichia coli. Urine culture was not sent at the time of admission. Subsequent urine and blood cultures after the initiation of antibiotics have been negative. Patient was evaluated by obstetrics and gynecology while in the hospital. She she is yet to set up care. Pelvic ultrasound showed 19 week gestation , single live intrauterine . She also requires baby centered program for substance abuse. She was seen by obstetrics social services designee and all her appointments have been set up. She developed mild respiratory distress while in the hospital, has been started on IV steroids and breathing treatments for possible acute COPD/asthma. Chest x -ray showed no acute infiltrates. Pulmonology was consulted, agreed with current management. Patient significantly improved with the above regimen, currently medically stable for discharge with oral antibiotics. Discharge discussed with: patient Time spent discussing smoking cessation with patient: 3 to 10 minutes - Time Spent with Patient Total time spent providing and/or coordinating discharge services: Greater than 30 minutes (45 min) - Discharge Medications Prescriptions: Albuterol Sulfate [Albuterol Inhaler] 2 puff IH Q4HR PRN 30 Days hfa.[email or web address] PRN Reason: Shortness Of Breath/Wheezing Cefdinir [Omnicef] 300 mg PO BID #20 capsule Famotidine [Pepcid] 20 mg PO BID #20 tablet predniSONE [PredniSONE] 40 mg PO DAILY #8 tablet Vit/FA 1 each PO DAILY #30 tablet Home Medications: Quetiapine Fumarate [Seroquel] 400 mg PO HS 11/27/16 [History] Propranolol [Inderal] 20 mg PO TID 09/04/17 [History] Topiramate 25 mg PO DAILY 09/04/17 [History] hydrOXYzine HCl [Hydroxyzine HCl] 50 mg PO TID 09/04/17 [History] Albuterol Sulfate [Albuterol Inhaler] 2 puff IH Q4HR PRN 30 Days hfa.aer.ad [Rx] Cefdinir [Omnicef] 300 mg PO BID #20 capsule 09/07/17 [Rx] Famotidine [Pepcid] 20 mg PO BID #20 tablet 09/07/17 [Rx] Vit/FA 1 each PO DAILY #30 tablet 09/07/17 [Rx] predniSONE [PredniSONE] 40 mg PO DAILY #8 tablet 09/07/17 [Rx] Allergies/Adverse Reactions: 3 Allergy/AdvReac Type Severity Reaction Status Date / Time No Known Allergies Allergy Verified 11/27/16 05:32 Date of admission: 09/06/17 15:00 Primary care physician: Keo Schaefer MD Discharging clinician: Alessandra Phelps Anticipated date of discharge: 09/07/17 - Constitutional Vitals: Temp Pulse Resp BP Pulse Ox 97.8 F 92 14 114/65 98 09/07/17 10:51 09/07/17 10:51 09/07/17 10:51 09/07/17 10:51 09/07/17 10:51 General appearance: Present: A&O X 3, no acute distress, answers questions appropriately - Respiratory Respiratory exam: Present: CTAB. Absent: accessory muscle use, rales, rhonchi, wheezes - Cardiovascular Cardiovascular exam: Present: RRR, +S1, +S2. Absent: diastolic murmur, gallop, rubs, systolic murmur - Patient Status Disposition: Home, Self-Care Condition: Good Functional capacity at discharge: independent ambulation Overall status at discharge: patient is progressing back to baseline - Discharge Instructions Instructions: Urinary Tract Infection in Children (GEN), Urinary Tract Infection in Women (DC) Follow Up With: Keo Schaefer MD [Primary Care Provider] - 09/15/17 1:00 pm Additional Instructions: F/up with OBGYN as scheduled - Diet and Activity Activity: resume usual activities as tolerated Diet: advance to your usual diet
[2017-09-07] MEDS ORDERED: cefTRIAXone 1,000 MG in Water for inj. (sterile) 20 ML 20 ML IVP SCH (12:00)
[2017-09-07] MEDS: hydrOXYzine pamoate 25 MG CAPSULE PO SCH (13:07)
== END 2017-09-07 13:55 | disposition home or self-care (01) | DRG 566 ==
LOC: EMEROO 22:55 → 3ANU 22:55 → SUATTDRO 09-04 05:51
PROVIDERS: ADMIT Internal Medicine; ATTEND Internal Medicine

== ENCOUNTER → 2018-01-07 16:46 | Observation (INO) ==
--- NOTE | 2018-01-07 16:41 | OB/GYN Progress Note ---
Date of Encounter: 01/07/18 Time of Encounter: 16:41 - Assessment and Plan (1) 37 weeks gestation of Current Visit: Yes Status: Acute (2) Trichomonal vaginitis during in third trimester Current Visit: Yes Status: Acute + on [facility] for trich and BV, given 2gm flagyl po prior to transfer (3) Opiate dependence Current Visit: Yes Status: Chronic Pt denies use, states now clean. + [facility] for meth on 12/31 Qualifiers: Substance use status: uncomplicated Qualified Code(s): F11.20 - Opioid dependence, uncomplicated (4) pericardial effusion Current Visit: Yes Status: Acute 5mm pericardial effusion noted, non-reactive NST. Called and discussed care with Dr. Taveras retail consultant at [facility], who accepted patient for transfer and management. Pt transfered to [facility] by BLS ambulance Subjective - Subjective Interval history: 37+1 weeks gestation presents L&D triage from office. Patient sent over from [facility] office by Dr. Tinajero for monitoring and potential transfer to [facility] due to ultrasound showing of pericardial effusion and a 5 mm. Patient complains of back pain and has concern for contractions, reports good movement, denies vaginal bleeding or leaking of fluid, has had some increased discharge, lab just received from Dr. Tinajero patient positive for Trichomonas. Patient with a history of polysubstance abuse, has recently been exited from the maternal centered recovery program, multiple positive [facility] drug screens, but patient denies any current drug use. Antepartum ROS: movement normal, contractions, no loss of fluid, no vaginal bleeding Objective - Vital Signs Vital Signs: Intake and Output 01/07/18 01/07/18 01/07/18 07:59 15:59 23:59 Other: Weight 85.7 kg Patient Weight 01/07/18 23:59 Weight 85.7 kg - Exam FHR: other FHR comments: baseline 150, minimal -moderate variability no accels Abdomen: Present: soft, gravid Cervical dilation: 3 external closed internal per RN
[~2018-01-07 16:46] MED LIST: Ringers Solution, Lactated 1,000 ML IVC ONE; Ringers Solution, Lactated 1,000 ML ONE; metroNIDAZOLE 500 MG TABLET PO ONE
[2018-01-07 16:50] LABS: Amphetamine Screen,Urine Negative ng/mL (Cutoff=1000); Barbiturate Screen,Urine Negative ng/mL (Cutoff=200); Benzodiazepines Screen,Urine Negative ng/mL (Cutoff=200); Cannabinoid Screen,Urine Negative ng/mL (Cutoff = 50); Cocaine Screen,Urine Negative ng/mL (Cutoff= 300); Opiate Screen,Urine Negative ng/mL (Cutoff=300); Phencyclidine Screen,Urine Negative ng/mL (Cutoff=25)
== END | disposition critical access hospital (66) ==
LOC: 1NENULAB
PROVIDERS: ADMIT Obstetrics & Gynecology; ATTEND Obstetrics & Gynecology

== ENCOUNTER → 2018-01-14 22:21 | Observation (INO) ==
[2018-01-14 18:57] LABS: Amphetamine Screen,Urine Negative ng/mL (Cutoff=1000); Barbiturate Screen,Urine Negative ng/mL (Cutoff=200); Benzodiazepines Screen,Urine Negative ng/mL (Cutoff=200); Cannabinoid Screen,Urine Negative ng/mL (Cutoff = 50); Cocaine Screen,Urine Negative ng/mL (Cutoff= 300); Opiate Screen,Urine Negative ng/mL (Cutoff=300); Phencyclidine Screen,Urine Negative ng/mL (Cutoff=25)
--- NOTE | 2018-01-14 21:13 | OB/GYN Progress Note ---
Date of Encounter: 01/14/18 Time of Encounter: 21:09 - Assessment and Plan (1) 38 weeks gestation of Status: Acute (2) pericardial effusion Status: Acute (3) Uterine contractions Status: Acute Pt states only feels occasional contractions. No change on serial cervical exams. Transferred to [facility] please see Dr. Payton H&P Subjective - Subjective Interval history: 38+1 presents to triage from [facility] office with contractions. In office she was 3-4cm per Dr. Tinajero with occasional contractions. Reports good movement, denies vaginal bleeding or leaking of fluid. Pt with pericardial effusion, and possible structural cardiac defects, was evaluated last week at [facility] and discharged to outpatient care with IOL at 39 weeks. US today shows. The fetus is in VTX postition The placenta is anterior +FHR 132 EDWIGE 13 cm 4 mm pericardial effusion noted. BPP 8/8 Umb artery doppler WNL. Antepartum ROS: movement normal, contractions, no loss of fluid, no vaginal bleeding Objective - Vital Signs Vital Signs: Intake and Output 01/14/18 01/14/18 01/14/18 07:59 15:59 23:59 Other: Weight 88.4 kg Patient Weight 01/14/18 23:59 Weight 88.4 kg - Exam FHR: auscultation normal FHR comments: Baseline 130 Abdomen: Present: soft, gravid Cervical dilation: 3/50/-3
--- NOTE | 2018-01-14 21:38 | OB/GYN History & Physical ---
Date of Encounter: 01/14/18 Time of Encounter: 21:30 Assessment and Plan (1) 38 weeks gestation of Current visit: Yes Status: Acute (2) pericardial effusion Current visit: No Status: Acute Case was discussed with maternal medicine fellow [employer] consultant and has accepted patient's transfer to the institution for prolonged monitoring they will make arrangements for induction of labor at 39 weeks if she is not actively laboring at this time (3) Uterine contractions Current visit: Yes Status: Acute (4) and not yet delivered in third trimester Current visit: Yes Status: Acute History of Present Illness HPI: Ms. Woodall is a 37 year old female 8 para [id number] at 38 and one sevenths weeks who was sent in from the office for evaluation of possible labor. Patient was seen last week which was diagnosed with pericardial effusions presented to labor and delivery where NST was nonreactive patient was transferred [facility] for this complications they did evaluate the patient today did also noted the pericardial effusions doubled the size that we had and suspected possible cardiac defect because patient was not making any cervical change she was discharged home for weekly NSTs and ultrasounds. Ultrasound today did not show any signs of any hydrops or pericardial effusion was 4 mm and biophysical was 8 out of 8 however when patient was examined patient had made cervical change was 3-4 cm and had previously been 2 cm. Because of her history she was sent to labor and delivery for prolonged monitoring upon arrival patient was viry every 2-3 minutes. Not really feeling them and remained at approximately 3-4 cm and ballotable patient continued to have contractions and because of the history was decide this time we would discuss the case with maternal medicine and see about possible transfer since pediatric group at [place] did not want the patient to be here if could be transferred. Case was discussed with maternal medicine fellow on -call who accepted the transfer with the understanding that if patient is truly not in labor they will discharge her home however they would make arrangements for her to be induced at 39 weeks at the institution. Patient is aware of this. Past Med Surg Social Fam HX - Past Medical History Source: patient, old records reviewed Medical history: hepatitis Additional medical history: C Psychiatric history: depression, other (Bipolar disorder) - Past Surgical History Surgical History: no surgical history - Social History Smoking Status: Current every day smoker Packs per day: 0.5 Smokeless Tobacco Status: No Alcohol use: none Drug use: opiates, methamphetamine, IV Drug Use, prescription drug abuse Occupational status: unemployed Current living situation: Home - Independent Activity Level: Independent ambulation Recent Out of Country Travel Within the Last 8 Weeks: No Exposure or Possible Exposure to Illness During Travel: No - Family History Mother Living Status: Still Living Father Adopted: No Living Status: Still Living Hx Family Cardiac Disorders: No Hx Family Respiratory Disorders: No Hx Family Cancer: No Hx Family GI Disorders: No Hx Family Genitourinary Disorders: No Hx Family Endocrine Disorder: No Hx Family Musculoskeletal Disorders: No Hx Family Neuromuscular Disorders: No Hx Family Neurologic Disorders: No Hx Family HEENT Disorders: No Hx Family Autoimmune Disorders: No Hx Family Reproductive Disorders: No Hx Family Psychosocial Disorders: No Hx Family Medical Disorders: Yes (Diabetes) Obstetrical History - Pregnancies : 8 Para: 5 Term: 5 : 0 Ab's: 2 Livin Medications and Allergies Pepcid 01/14/18 [History] Tablet 01/14/18 [History] Subutex 8 mg PO 01/14/18 [History] 3 Allergy/AdvReac Type Severity Reaction Status Date / Time No Known Allergies Allergy Verified 01/07/18 15:37 Review of System OB All systems PM: reviewed and no additional remarkable complaints except as stated - Menstruation Menstruation: other (Patient with complaint of contractions) Exam - Constitutional Constitutional: well developed, well nourished, average body habitus, mild distress - HEENT HEENT: EOMI, PERRL, Mucus Membranes Moist - Neck Neck exam: full ROM - Lungs Respiratory exam: CTAB - Cardiovascular Cardiovascular exam: RRR - Abdomen Abdomen: Present: bowel sounds normal, gravid ( heart tones 140s contractions every 2 min) - Cervix Dilation: 3 Effacement: 70 Station: -1 (ballotable) Results All other labs normal. - VTE Reasons for not Prescribing Prophylaxis: Treatment not Indicated - Low risk for VTE
== END | disposition other institution (70) ==
LOC: 1NENULAB
PROVIDERS: ADMIT Advanced Practice Midwife; ATTEND Advanced Practice Midwife